=== PATIENT | female | born 1990 | race Caucasian/White ===

== ENCOUNTER 2019-01-08 19:47 | Emergency (ER) | payer MEDICAID ==
[~2019-01-08] VITALS: Ht 167.6 cm; Wt 78.5 kg
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
[2019-01-08] MEDS ORDERED: HYDROcodone/Acetamin 5/325 tab ORAL ONE (20:30)
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
[2019-01-08] MEDS ORDERED: ACETAMINOPHEN-1 EAC1 ORAL (20:59)
[2019-01-08] MEDS ORDERED: IBUPROFEN600 MG ORAL (20:59)
[2019-01-08 21:40] VITALS: BP 108/60
--- NOTE | 2019-01-08 21:40 | NUR ---
ER Nurse Note: All orders completed per ERMD orders. Pt seen, treated, medically cleared for discharge by ERMD. Discharge instructions given with repeat verbazliaion by pt. Instructed pt to follow up with primary care provider within one week. Pt a&ox4, VSS, no signs of distress. ID band removed. Giles wrapped left knee with crutches; crutch teaching provided by [employer] technician. Pt left with all belongings with steady gait via own transportation.
--- NOTE | 2019-01-09 11:08 | Diagnostic Imaging Report ---
INDICATION: Knee Pain COMPARISON: None 3 views of the left knee were obtained. FINDINGS: No acute fracture, malalignment, or joint effusion are identified. Bones are osteopenic. Joint space is relatively well-maintained. Impression: Negative for acute injury
== END 2019-01-08 21:40 | disposition home or self-care (01) ==
LOC: EMR 20:40
DX: S83.92XA Sprain of unspecified site of left knee, initial encounter (principal); S80.02XA Contusion of left knee, initial encounter; W05.2XXA Fall from non-moving motorized mobility scooter, initial encounter; Y92.9 Unspecified place or not applicable
CPT/HCPCS: 99283